=== PATIENT | female | born 1950 | race Caucasian/White ===

== ENCOUNTER 2017-11-05 08:36 | Observation (INO) ==
[2017-11-05] MEDS ORDERED: ceFAZolin 2 GM Premix Inj 2 GM/100 ML BAG IV.SIG ONE (09:18)
[2017-11-05] MEDS ORDERED: Heparin - SQ 10,000 UNITS/ML Vial ONE (09:20)
[2017-11-05] MEDS ORDERED: Chlorhexidine Gluconate 2% 1 Pack (2 Cloths) TOPICAL ONE (10:15)
[2017-11-05] MEDS ORDERED: Metoprolol Tartrate 25 MG Tablet PO ONE (10:15)
[2017-11-05] MEDS ORDERED: ceFAZolin 2 GM IV; once IV.SIG ONE (10:15)
[2017-11-05] MEDS ORDERED: Sodium Chlor 0.9% Inj 500 ML IV.CONT ONE (10:15)
[2017-11-05] MEDS ORDERED: Heparin - SQ 10,000 UNITS/ML Vial SQ SCH (10:30)
[2017-11-05] MEDS ORDERED: Lidocaine 1%/Epinephrine 1:100,000 Inj 30 ML Vial ONE (12:49)
[2017-11-05] MEDS ORDERED: Famotidine PF Inj 20 MG/2 ML Vial ONE (12:58)
[2017-11-05] MEDS ORDERED: Sugammadex Inj 200 MG/2 ML Vial IV.PUSH ONE (12:58)
[2017-11-05] MEDS ORDERED: Phenylephrine/NS 1000 MCG/10ML Syringe IV.PUSH ONE (13:10)
[2017-11-05] MEDS ORDERED: Normosol-R pH 7.4 Inj 1,000 ML IV.CONT ONE (13:10)
[2017-11-05] MEDS ORDERED: Ketorolac Inj 30 MG/ML (IVP) Vial IV.PUSH ONE (13:10)
[2017-11-05] MEDS ORDERED: Lidocaine PF 1% Inj 5 ML Syringe OTHER ONE (13:10)
[2017-11-05] MEDS ORDERED: KCL 20 mEq/D5W/NaCl 0.45% Inj 1,000 ML ONE (16:55)
[2017-11-05] MEDS: KCL 20 mEq/D5W/NaCl 0.45% Inj 1,000 ML IV.CONT SCH ×2 (17:15→23:16)
[2017-11-05] MEDS ORDERED: fentaNYL Citrate Inj 100 MCG/2 ML Ampul ONE (17:31)
[2017-11-05] MEDS ORDERED: LORazepam 0.5 MG Tablet PO PRN (18:00)
[2017-11-05] MEDS: Ketorolac Inj 30 MG/ML (IVP) Vial IV.PUSH SCH ×2 (18:18→23:11)
[2017-11-05 23:22] VITALS: O2SAT 95
[2017-11-06] MEDS: KCL 20 mEq/D5W/NaCl 0.45% Inj 1,000 ML IV.CONT SCH ×2 (03:43→11:36)
[2017-11-06] MEDS: Ketorolac Inj 30 MG/ML (IVP) Vial IV.PUSH SCH ×2 (05:12→11:58)
[2017-11-06 05:31] VITALS: BP 119/67
[2017-11-06 06:49] LABS: Baso % (Auto) 0.1 % (0.0-2.0); Hematocrit 34.3 % (35.0-46.0); Hemoglobin 11.6 gm/dL (11.6-15.3); Lymph # (Auto) 1.6 th/mm3 (1.0-4.8); Lymph % (Auto) 10.3 % (9.0-44.0); Mean Corpuscular HGB Conc 33.9 % (32.0-36.0); Mean Corpuscular Hemoglobin 28.9 pg (27.0-34.0); Mean Corpuscular Volume 85.4 fL (80.0-100.0); Mean Platelet Volume 7.6 fL (7.0-11.0); Mono # (Auto) 1.3 th/mm3 (0.0-0.9); Mono % (Auto) 8.3 % (0.0-8.0); Neut # (Auto) 12.2 th/mm3 (1.8-7.7); Neut % (Auto) 81.3 % (16.0-70.0); Platelet Count 240 th/mm3 (150-450); Red Blood Count 4.02 mil/mm3 (4.00-5.30); White Blood Count 15.1 th/mm3 (4.0-11.0)
[2017-11-06 06:55] LABS: Calcium 8.2 mg/dL (8.5-10.1); Carbon Dioxide 27.6 meq/L (21.0-32.0); Potassium 3.4 meq/L (3.5-5.1)
--- NOTE | 2017-11-06 08:06 | MP ---
cc: Lakshmi Merida MD, Patricia C MD Chang,Beatris Villaseñor MD DATE OF OPERATION: 11/05/2017 PREOPERATIVE DIAGNOSES: 1. Endometrial cancer. 2. Enlarged uterus. POSTOPERATIVE DIAGNOSES: 1. Endometrial cancer. 2. Enlarged uterus. PROCEDURE: Robotic-assisted laparoscopic hysterectomy, bilateral salpingo-oophorectomy (myomectomies) to facilitate transvaginal delivery of the specimen, bilateral pelvic lymph node excisional biopsies. SURGEON: Lakshmi Merida MD. SAMPLE ROOM SUPERVISOR: Lars international first officer. ANESTHESIA: General endotracheal anesthesia. ESTIMATED BLOOD LOSS: 100 mL. IV FLUIDS: 1600 mL. URINE OUTPUT: 100 mL. HISTORY AND INDICATIONS: A 67-year-old female with postmenopausal bleeding, prominent endometrial stripe. Sampling showed grade I endometrial adenocarcinoma seemingly arising from the polyp and/or background of complex atypical hyperplasia. She was counseled regarding these findings and recommendations for surgery. She is seen again in the preop holding area where the findings and plan of care are again discussed. Questions were asked and answered. She expressed good understanding and agreed to move forward with surgery. FINDINGS: The uterine cavity sounded to approximately 8.5 cm. The uterus itself was larger, as there were a collection of leiomyomas coming off the left lateral anterior section of the uterus. The tubes and ovaries grossly appeared normal. There were no appreciably enlarged periaortic or pericaval lymph nodes. There were 2 prominent lymph nodes along the external iliac area on the right pelvis. There was a single prominent lymph node in the distal external iliac region on the left side. The peritoneal surfaces were smooth. The liver and diaphragm edges were smooth. The large and small bowel and adjacent mesentery appeared normal. There were no peritoneal implants. The uterus, once removed, showed superficial plaque of tumor in the endometrium with no obvious myometrial invasion, no obvious cervical extension. DESCRIPTION OF PROCEDURE: She is taken to the operating room and placed in dorsal lithotomy position, after general endotracheal anesthesia was administered. A timeout was undertaken. She was identified by site recognition and hospital ID bracelet and the proposed procedure was reviewed and confirmed. She is carefully positioned in padded Austen stirrups. Her arms were padded and secured to the sides. She was further secured to the operating table with egg crate padding and tape in a crossed-chest [id number] fashion. All sites noted to be properly aligned with no malalignment or pressure points. She was prepped in a sterile fashion draped below the waist and placed in high lithotomy position. The cervix grasped. Uterine cavity sounded. Cervix dilated and a standard VCare manipulator was inserted and secured in usual fashion. Acevedo catheter was placed in the bladder. She was returned to low lithotomy position. Change of sterile gloves was undertaken. We confirmed that an orogastric tube was in the stomach on suction and we completed draping in anticipation of the laparoscopy. With manual elevation of the abdominal wall and direct laparoscopic visualization, 5 mm cannula placed in the left upper quadrant. Carbon dioxide gas was insufflated and an atraumatic entry was confirmed. An 8 mm cannula was placed in the right upper quadrant and left lateral quadrant. The original 5 exchanged for an 8 mm cannula, 12 mm placed in the midline above the umbilicus. She was placed in Trendelenburg position. Peritoneal washings were obtained for cytology. The anatomy was explored with findings as described above. She was placed in Trendelenburg position. The small bowel was folded back on its mesenteric root and 3 Ray-Christoph sponges were placed in the peritoneal cavity. The robotic system was brought into the operative field and attached in the usual fashion. Monopolar scissors, fenestrated bipolar forceps, and ProGrasp manipulators placed in arms 1, 2, and 3 respectively; and I took my place at the surgeon's console. Right round ligament was cauterized and transected. The anterior and posterior leafs of the broad ligament were opened. The right ureter was identified. The right infundibulopelvic ligament was isolated to the level of the pelvic brim where it was cauterized and transected. The posterior peritoneum opened along the right side of the uterus and cervix and the right vesicouterine peritoneum dissected off the lower uterine segment and cervix. The uterine vessels were skeletonized, cauterized, and transected as were the cardinal, paracervical, and uterosacral ligaments. Attention was directed toward the left side, where the left round ligament was isolated, cauterized, and transected. The anterior and posterior leafs of the broad ligament were opened. The left ureter was identified. The left infundibulopelvic ligament was isolated to the level of the pelvic brim where it was cauterized and transected. The posterior peritoneum opened along the left side of the uterus and cervix and the left vesicouterine peritoneum dissected off the lower uterine segment and cervix as the left uterine vessels were skeletonized, cauterized, and transected, as were the cardinal, paracervical, and uterosacral ligaments. Given the large size of the uterus relative to the pelvic outlet, myomectomies were performed where a group of leiomyomas were resected from the left lateral ventral uterine wall. They were placed in the right pericolic gutter for later retrieval; and by reducing the size of the uterus now, this allowed a transvaginal delivery of the specimen, which included uterus, cervix, tubes, and ovaries. After a pneumo-occluder balloon was placed in the vagina to maintain pneumoperitoneum, a 12 cm EndoCatch bag was introduced, capturing the leiomyomas, which were delivered transvaginally. Instruments 1 and 3 exchanged for needle drivers as a #0 Vicryl suture was introduced. The vaginal cuff was closed starting at the left corner. Full-thickness closure, incorporating the posterior peritoneum and edge of the uterosacral ligament. The closure was held on countertraction as a running full thickness continuous closure was carried across the vaginal apex to the contralateral corner, which was similarly fixed, secured, tied. The needle was cut and removed. A retroperitoneal evaluation with the findings as described above. The right paravesical obturator and perirectal spaces were opened. Lymphatics were visibly and palpably inspected. There was a slightly prominent lymph node in the proximal to mid external iliac region and a more prominent lymph node in the distal external iliac region. As they appeared clinically suspicious, they were removed using bipolar cautery and sharp dissection; and they were placed in the right pericolic gutter for later retrieval. The remainder of the lymphatic basin appeared normal and were left in situ. Attention was directed toward the left side where similarly, the spaces were opened. Perivesical, perirectal, obturator visual and palpable inspection revealed a single large lymph node in the distal external iliac region, which was isolated with bipolar cautery and sharp dissection removed and placed in the right pericolic gutter for later retrieval. Visual and palpable inspection revealed no remaining abnormal lymph nodes and the remainder of the lymph nodes were left in situ. The periaortic pericaval region was inspected. There were no prominent lymph nodes. The preliminary pathology came back showing no obvious invasive cancer. It was felt that further lymphadenectomy may be associated with morbidity that exceeded benefit. Accordingly, it was felt that all reasonable surgical objectives had been completed. After the pelvis was thoroughly irrigated, hemostatic Zulay powder was placed across the vaginal cuff and in the lymph node dissection basins. There was complete hemostasis. The robotic instruments were removed and the robotic system was disengaged from the operative field. I reentered the bedside under sterile condition. A 12 cm EndoCatch bag was used to capture the lymph nodes which were withdrawn through the 12 mm cannula. Then each of the 3 Ray-Christoph sponges were removed individually. Each were inspected and noted to be removed in their entirety. There was good hemostasis. Again, as checked, there were no remaining foreign objects in the peritoneal cavity. Preliminary counts were correct. The 12 mm fascia was closed with interrupted #0 Vicryl sutures using fascia needle closure apparatus and tied securely. The fascia was rendered hemostatic and airtight. The remaining cannulas were withdrawn. Carbon dioxide gas was removed. Then 3-0 Vicryl subcutaneous, 3-0 Vicryl subcuticular used to close these incisions, covered by Steri-Strips. She was returned to lithotomy position. Vaginal cuff was well supported and hemostatic. There was some superficial vaginal laceration at the introitus in the midline, which was rendered hemostatic and repaired with interrupted [id number] 3-0 Vicryl sutures and focal irritation were rendered hemostatic with silver nitrate. The remainder of the hemostatic Zulay was placed in the vaginal canal. There were no remaining foreign objects in the vagina. Final counts were correct. She was returned to dorsal supine position and was pending reversal of anesthesia, when I left the operating room to precede her to the postanesthesia care unit. MD DELMY Tim/stepan , 07:20 AM , 07:36 AM
[2017-11-06 08:33] VITALS: PULSE 67; RESP 16; TEMP 98.5
[2017-11-06] MEDS ORDERED: hydroCHLOROthiazide 25 MG Tablet PO SCH (09:00)
--- NOTE | 2017-11-06 09:56 | MD ---
cc: Lakshmi Merida MD,Mariya Simons,Beatris Villaseñor MD DATE OF DISCHARGE: 11/06/2017 PROCEDURE: On 11/05/2017, robotic-assisted laparoscopic hysterectomy and bilateral salpingo-oophorectomy. DIAGNOSES: Endometrial cancer, uterine leiomyomas. HOSPITAL COURSE: She did well in her early postoperative period. Hemodynamically stable, tolerating oral intake. Acevedo catheter removed. Pending voiding. Ins and outs, 3840/550. LABORATORY DATA: H and H 11.6 and 34.3. BUN and creatinine 11 and 0.96. Potassium 3.4, to be repleted. PHYSICAL EXAMINATION: GENERAL: Alert and oriented x 3, no acute distress. LUNGS: Clear. VITAL SIGNS: Afebrile, stable vital signs. CARDIOVASCULAR: Regular rate and rhythm. ABDOMEN: Soft. Incision clean and dry. GYNECOLOGIC: No bleeding. ASSESSMENT: Postoperative day number 1, doing well in the early postoperative period. Findings at the time of surgery and preliminary pathology discussed. Activity and restrictions are again reviewed. Questions were asked and answered. She expressed good understanding. PLAN: I anticipate she will meet criteria for discharge to home. She is to resume prior medications. She will have a prescription for Percocet. Our office number is again provided and she is to call our office to ensure she has a scheduled followup within approximately 2 weeks. MD DELMY Tim/stepan , 07:09 AM , 07:14 AM
== END 2017-11-06 14:00 | disposition home or self-care (01) ==
LOC: HSDC 08:36 → HSDI 08:36 → HCIN 18:56
PROVIDERS: ADMIT Obstetrics & Gynecology Gynecologic Oncology; ATTEND Obstetrics & Gynecology Gynecologic Oncology